=== PATIENT | male | born 1980 | race Caucasian/White ===

== ENCOUNTER 2016-07-25 08:06 | Emergency (ER) | payer OTHER ==
[2016-07-25 08:16] VITALS: BP 135/81
--- NOTE | 2016-07-25 08:41 | PROVIDER DOCUMENTATION ---
HPI-EENT General - General Chief Complaint: Sore Throat Stated Complaint: SORE THROAT Time Seen by Provider: 07/25/16 08:31 Source: patient Allergies/Adverse Reactions: Patient Allergies Allergy/AdvReac Type Severity Reaction Status Date / Time No Known Allergies Allergy Verified 08/03/15 14:03 Home Medications: Home Medication List Medication Instructions Recorded Confirmed Last Taken Type Buprenorphine/Naloxone S.l. 8 mg PO BID 11/02/13 08/03/15 07/24/16 History [Suboxone 8 mg/2 mg] - History of Present Illness-EENT General Nature of Presenting Problem: sore throat, fever to 102x, body aches, frontal H/A since Sat. Says today is best that has felt since Sat. Nothing makes better, worse. Sl nasal evin, no cough EENT Location: reports: throat Quality of Pain: reports: sharp Severity: reports: moderate Onset/Duration: reports: 5 days ago Timing: reports: improving Associated Symptoms: reports: fever, malaise, sore throat, other (see HPI) Locality of Occurance: Home Similar Symptoms Previously?: No Recently seen or treated by another doctor?: No Review of Systems - Adult - REVIEW OF SYSTEMS - ADULT Constitutional: reports: see HPI Eyes: reports: eye pain Ears, Nose, Mouth & Throat: reports: see HPI Cardiovascular: reports: no symptoms reported Respiratory: reports: no symptoms reported Gastrointestinal: reports: no symptoms reported Genitourinary: reports: no symptoms reported Musculoskeletal: reports: no symptoms reported Integumentary: reports: no symptoms reported Neurological: reports: see HPI Psychiatric: reports: no symptoms reported Endocrine: reports: no symptoms reported Hematologic/Lymphatic: reports: no symptoms reported Allergic/Immunologic: reports: no symptoms reported Past History - Adult - PAST MEDICAL HISTORY-ADULT Review of Records: reports: Medications Reviewed Major Childhood Illnesses: reports: denies history Cardiovascular: reports: denies history Respiratory: reports: denies history Gastrointestinal: reports: denies history Obstetrical/Gynecological: reports: denies history Genitourinary: reports: denies history Musculoskeletal: reports: denies history Neurological: reports: denies history Endocrine/Immune: reports: denies history Other Conditions: reports: denies history - PRIOR SURGERIES/PROCEDURES Surgical/Procedure History: reports: other (tubes in both ears) - IMMUNIZATION STATUS Childhood Immunizations: See Nurse Assessment Flu Vaccine: See Nurse Assessment - FAMILY HISTORY Family History: reviewed, not pertinent - SOCIAL HISTORY Smoking: denies Physical Exam- EENT - Physical Exam EENT Initial Vital Signs Reviewed: Yes General Appearance: appears well, alert, no apparent distress Eye Exam: bilateral eye: normal inspection, PERRL, EOMI Ear Exam: bilateral ear: auricle normal Nasal Exam: normal inspection Throat Exam: normal mouth inspection, other (sl erythema, no swelling, no exudates) Neck: non-tender, other (sl adenopathy) Respiratory: chest non-tender Cardiovascular: normal peripheral pulses, regular rate, rhythm, no gallop, no murmur Abdominal Exam: non tender, soft Back Exam: normal inspection, no CVA tenderness, no vertebral tenderness Extremity: normal range of motion, non-tender Integumentary: normal color, normal turgor, warm/dry Neurologic: drier helper II-XII nml as tested, grossly normal, no motor/sensory deficits Psych/Mental Status: normal mood/affect, normal thought content, normal thought process, oriented x 3 Progress - PLAN OF CARE/RESULTS Progress/Plan/Lab Results: Laboratory Tests 07/25/16 08:18 Group A Strep Rapid NEGATIVE Orders Category Date Time Status INFLUENZA SCREEN PL Stat Lab 07/25/16 08:18 Received strep [DIRECT STREP PL] Stat Lab 07/25/16 08:18 Completed Vital Signs Temp Pulse Resp BP Pulse Ox 07/25/16 08:12 98.4 F 85 20 135/81 99 No Known Allergies Allergy (Verified 08/03/15 14:03) Buprenorphine/Naloxone S.l. [Suboxone 8 mg/2 mg] 8 mg PO BID 11/02/13 Laboratory 07/25/16 08:18 Group A Strep Rapid NEGATIVE Departure - Departure Time of Disposition Order: 08:42 DIAGNOSIS: Pharyngitis Qualifiers: Pharyngitis/tonsillitis etiology: other specified organisms Qualified Code(s): J02.8 - Acute pharyngitis due to other specified organisms Disposition: HOME 01 Certified Medical Emergency: Emergent Condition: Good Additional Instructions: ED Follow Up Instructions: You have been treated by a care provider in the Emergency Department. These instructions are being provided to you so you can have an understanding of how to care for yourself upon discharge. Upon discharge from the Emergency Department, you are responsible for making arrangements for follow-up care by a physician of your choice. Take all prescribed medications as directed. Return to the Emergency Department immediately for any new or worsening symptoms. You may call the Physician Referral phone number at [phone] to obtain a list of Physicians who are taking new patients. Warm salt water gargles, Do not use throat sprays, but any sore throat lozenge is fine Instructions: Pharyngitis, Salt Water Gargle
== END 2016-07-25 09:04 | disposition home or self-care (01) ==
LOC: P.ED 08:06
DX: J02.8 Acute pharyngitis due to other specified organisms (principal); R50.9 Fever, unspecified; M79.1 Myalgia; R51 Headache; R53.81 Other malaise; Z79.899 Other long term (current) drug therapy
CPT/HCPCS: 87081; 87430; 87804

== ENCOUNTER 2016-08-06 17:20 | Emergency (ER) ==
--- NOTE | 2016-08-06 18:40 | PROVIDER DOCUMENTATION ---
HPI-Musculoskeletal Pain/Inj - GENERAL Chief Complaint: Extremity Pain Stated Complaint: EXTREMITY PAIN Time Seen by Provider: 08/06/16 18:34 Source: patient - HX OF PRESENT ILLNESS-MUSKULOSKELTAL Nature of Presenting Problem: Pt is a 35 y/o M c chief complaint of swollen painful R lower leg x 1 week. Pt states he has been laying in bed for 5 days c strep throat. He has been taking PCN. When he returned to work last week, his lower extremities became sore and swollen. Pt has a h/o ADHD and narcotic addiction in the past. Review of Systems - Adult - REVIEW OF SYSTEMS - ADULT Constitutional: reports: no symptoms reported. denies: chills, fatique Eyes: reports: no symptoms reported. denies: blurred vision, double vision Ears, Nose, Mouth & Throat: reports: no symptoms reported. denies: ear pain, sinus problem Cardiovascular: reports: no symptoms reported. denies: chest pain, orthopnea Respiratory: reports: no symptoms reported. denies: cough, shortness of breath Gastrointestinal: reports: no symptoms reported. denies: abdominal pain, nausea Genitourinary: reports: no symptoms reported. denies: dysuria, hematuria Musculoskeletal: reports: joint pain, muscle aches. denies: bone pain, joint swelling Integumentary: reports: no symptoms reported. denies: itching, rash Neurological: reports: no symptoms reported. denies: numbness, paresthesia Psychiatric: reports: no symptoms reported. denies: anxiety, emotional problems Endocrine: reports: no symptoms reported. denies: cold intolerance, heat intolerance Hematologic/Lymphatic: reports: lymphedema. denies: blood clots, low blood count Allergic/Immunologic: reports: no symptoms reported. denies: food allergy, frequent infections All Other Systems: Reviewed and Negative Past History - Adult - PAST MEDICAL HISTORY-ADULT Review of Records: reports: Old Records Reviewed, Nursing Assessment Review, Medications Reviewed, Social history reviewed & non-contributory. Major Childhood Illnesses: reports: denies history Cardiovascular: reports: denies history Respiratory: reports: denies history Gastrointestinal: reports: denies history Obstetrical/Gynecological: reports: denies history Genitourinary: reports: denies history Musculoskeletal: reports: denies history Neurological: reports: denies history Endocrine/Immune: reports: denies history Other Conditions: reports: denies history - PRIOR SURGERIES/PROCEDURES Surgical/Procedure History: reports: none, other (tubes in both ears) - IMMUNIZATION STATUS Childhood Immunizations: See Nurse Assessment Flu Vaccine: See Nurse Assessment - FAMILY HISTORY Family History: reviewed, not pertinent - SOCIAL HISTORY Smoking: other (Vaping) Provider spent 3-5 mins advising pt. on dangers of tobacco.: Discussed manners to quit use, and f/u contacts for add'l counseling. Substance Use: none/never Alcohol Use Frequency: never Living Situation: family Physical Exam-Injury Related - Physical Exam-Injury Related Initial Vital Signs Reviewed: Yes General Appearance: appears well, alert, no apparent distress Eyes: PERRL/EOMI, pink conjunctivae Head, Ears, Nose, Mouth & Throat: normocephalic/atraumatic, moist mucous membranes, normal ENT inspection Neck: non-tender, full range of motion, supple Respiratory: chest non-tender, lungs clear, normal breath sounds Cardiovascular: normal peripheral pulses, regular rate, rhythm, no edema Abdominal Exam: normal bowel sounds, non tender, soft Extremity: tenderness (bilat ankles and calfs) Integumentary: swelling (bilat calf tenderness) Progress - PLAN OF CARE/RESULTS Progress/Plan/Lab Results: Orders Category Date Time Status CBC WITH ELECTRONIC DIFF [HEME] Stat Lab 08/06/16 19:15 Completed CMP [COMPREHENSIVE METABOLIC PANEL] [CHEM] Stat Lab 08/06/16 19:15 Completed Ddimer [D-DIMER PL] [COAG] Stat Lab 08/06/16 19:15 Completed Enoxaparin 1 mg/kg [Lovenox 1 mg/kg] Med 08/06/16 20:40 Once 1 each SUBQ NOW ONE Venous U/S Bilateral Legs [CV] Stat Ther 08/06/16 20:13 Ordered Laboratory Tests 08/06/16 08/06/16 08/06/16 19:15 19:15 19:15 WBC 9.58 RBC 4.22 L Hgb 12.4 L Hct 38.5 L MCV 91.2 MCH 29.4 MCHC 32.2 L RDW Std Deviation 12.5 Plt Count 319 MPV 11.0 H Immature Gran % (Auto) 0.1 Neut % (Auto) 61.6 Lymph % (Auto) 24.1 Ashley % (Auto) 9.2 Eos % (Auto) 4.6 Baso % (Auto) 0.4 Immature Gran # (Auto) 0.01 Neut # (Auto) 5.90 Lymph # (Auto) 2.31 Ashley # (Auto) 0.88 H Eos # (Auto) 0.44 Baso # (Auto) 0.04 D-Dimer 0.99 H Sodium 139 Potassium 4.0 Chloride 102 Carbon Dioxide 29 Anion Gap 8 BUN 16 Creatinine 0.9 Estimated GFR/1.73 m2 > 60 BUN/Creatinine Ratio 18 Glucose 78 Calculated Osmolality 278 Calcium 8.9 Total Bilirubin 0.20 AST 17 ALT 10 Alkaline Phosphatase 80 Total Protein 7.3 Albumin 3.8 Globulin 4.0 Albumin/Globulin Ratio 1.0 Vital Signs - 24 hr 08/06/16 17:31 Temperature 98.2 F Pulse Rate 84 Respiratory 16 Rate Blood Pressure 146/76 O2 Sat by Pulse 100 Oximetry - REASSESSMENT Reassessment #1 Time Reassessed: 20:41 (Pt has elevated ddimer c risk factors and susp physical exam for DVT. Discussed c Dr. Hayes (ER MD). There is no Vascular Cook Pie available. Dr. Hayes advised give lovenox 1mg/kg and have pt return to radiology in morning for a venous ultrasound to r/o DVT. ) Departure - Departure Time of Disposition Order: 20:43 DIAGNOSIS: Swelling of lower extremity, Elevated d-dimer Disposition: HOME 01 Certified Medical Emergency: Emergent Condition: Stable Additional Instructions: ED Follow Up Instructions: You have been treated by a care provider in the Emergency Department. These instructions are being provided to you so you can have an understanding of how to care for yourself upon discharge. Upon discharge from the Emergency Department, you are responsible for making arrangements for follow-up care by a physician of your choice. Take all prescribed medications as directed. Return to the Emergency Department immediately for any new or worsening symptoms. You may call the Physician Referral phone number at [phone] to obtain a list of Physicians who are taking new patients. Prescriptions: Cephalexin [Keflex] 500 mg PO BID #14 capsule Ibuprofen [Motrin] 800 mg PO Q8H PRN PRN #20 tablet PRN Reason: inflammation Omeprazole [Prilosec] 20 mg PO DAILY@0700 #20 capsule Referrals: None,PCP [Primary Care Provider] - Attestation - Physician/ MARTY Attestation Patient care was provided by Advanced Practice Provider:: Yes Advanced Practice Provider:: Shankar Dotson Advanced Practice Provider documentation review:: The Mid-level provider documentation, treatment plan and medical decision making was reviewed by the physician who agrees with all treatment and medical decision making by the MLP.
[2016-08-06 19:17] LABS: MANUAL DIFF NEEDED? NO
[2016-08-06 19:42] LABS: AGAP 8; ALBUMIN 3.8 g/dL (3.5-5.0); ALKALINE PHOSPHATASE 80 U/L (32-122); BUN 16 mg/dL (8-22); CALCIUM 8.9 mg/dL (8.8-10.2); CHLORIDE 102 mmol/L (98-107); COSMO 278; GOT 17 U/L (10-34); GPT 10 U/L (10-44); SODIUM 139 mmol/L (136-145); TCO2 29 mmol/L (25-35); TOTAL PROTEIN 7.3 g/dL (6.3-8.3)
[2016-08-06 20:13] LABS: BASO% 0.4 % (0.0-0.8); EOS# 0.44 X1000 (0.0-0.7); EOS% 4.6 % (0.0-10.0); HEMATOCRIT 38.5 % (42.0-52.0); HEMOGLOBIN 12.4 g/dL (14.0-18.0); IMM GRAN# 0.01 X1000 (0.0-0.04); IMM GRAN% 0.1 % (0.0-0.5); LYMPH# 2.31 X1000 (1.2-3.4); LYMPH% 24.1 % (20.5-51.1); MCH 29.4 PG (27-31); MCHC 32.2 g/dL (33-37); MCV 91.2 FL (81-99); MONO# 0.88 X1000 (0.11-0.59); MONO% 9.2 % (1.7-9.3); NEUT% 61.6 % (42.2-75.2); PLT 319 X1000 (130-400); RBC 4.22 XMIL (4.7-6.1)
[2016-08-06] MEDS ORDERED: LOVENOX 1 MG/KG SUBQ ONE (20:40)
[2016-08-06] MEDS ORDERED: LOVENOX ONE (20:44)
[2016-08-06 21:10] VITALS: BP 122/78
== END 2016-08-06 21:14 | disposition home or self-care (01) ==
LOC: P.ED 17:20
DX: R22.41 Localized swelling, mass and lump, right lower limb (principal); R79.1 Abnormal coagulation profile; M79.1 Myalgia; I89.0 Lymphedema, not elsewhere classified; F17.290 Nicotine dependence, other tobacco product, uncomplicated; Z71.6 Tobacco abuse counseling; Z79.899 Other long term (current) drug therapy
CPT/HCPCS: 80053; 85025; 85379; 93970; J1650